=== PATIENT | female | born 1990 | race Caucasian/White ===

== ENCOUNTER 2020-08-20 02:50 | Emergency (ER) | payer OTHER ==
--- OUTSIDE RECORDS SUMMARY | 2020-08-20 03:03 | XMS ---
:1990 Author Organization [facility] Support Name Relationship Address Phone UE Unavailable Unavailable Unavailable NIKA WILLINGHAM FRIEND [address] [facility] [place] [address] CYNDEE WANG FATHER [address] [place] [address] NIKA WILLINGHAM Unavailable [address] [place] [place] [address] Re-disclosure Warning The records that you are about to access may contain information from federally- assisted alcohol or drug abuse programs. If such information is present, then the following federally mandated warning applies: This information has been disclosed to you from records protected by federal confidentiality rules (42 CFR part 2). The federal rules prohibit you from making any further disclosure of this information unless further disclosure is expressly permitted by the written consent of the person to whom it pertains or as otherwise permitted by 42 CFR part 2. A general authorization for the release of medical or other information is NOT sufficient for this purpose. The Federal rules restrict any use of the information to criminally investigate or prosecute any alcohol or drug abuse patient.The records that you are about to access may contain highly sensitive health information, the redisclosure of which is protected by Article 27-F of the [facility] Public Health law. If you continue you may haveaccess to information: Regarding HIV / AIDS; Provided by facilities licensed or operated by the [facility] Office of Mental Health; or Provided by the [facility] Office for People With Developmental Disabilities. If such information is present, then the following [facility] mandated warning applies: This information has been disclosed to you from confidential records which are protected by state law. State law prohibits you from making any further disclosure of this information without the specific written consent of the person to whom it pertains, or as otherwise permitted by law. Any unauthorized further disclosure in violation of state law may result in a fine or custodial sentence or both. A general authorization for the release of medical or other information is NOT sufficient authorization for further disclosure. Encounters Encounter Providers Location Date Indications Data Source(s ) Outpatient [facility] Care 07/20/2019 eCW3 ([facility] A[facility] 12:00:00 AM Health Care) EDT - 07/20/2019 12:00:00 AM EDT Medications Medication Brand Start Product Dose Route Administrative Pharmacy St [facility] Indications Reaction Description Data Name Date Form Instructions Instructions Source(s) 21 DAY NuvaRi 01/16/ active NuvaRing eCW 3 Ethinyl ng 2020 0.12-0.015 ([place] [facility] Estradiol 0.12-0 12:00: MG/24HR Jocelin er 0.898294 .015 00 AM Health MG/HR / MG/24H EDT Care) Etonogestre R l 0.005 MG/HR Vaginal Ring [NuvaRing] NuvaRing 0.12-0.015 MG/24HR 21 DAY NuvaRi 01/16/ active NuvaRing eCW 3 Ethinyl ng 2020 0.12-0.015 ([place] [facility] Estradiol 0.12-0 12:00: MG/24HR Jocelin er 0.036108 .015 00 AM Health MG/HR / MG/24H EDT Care) Etonogestre R l 0.005 MG/HR Vaginal Ring [NuvaRing] NuvaRing 0.12-0.015 MG/24HR Insurance Providers Payer name Policy type Policy ID Covered Covered constitution party's Policy P kiah / Coverage constitution party ID relationship to [place] Inf ormation type keita [facility] MEDICAID [id number] O Social History Code Duration Value Status Description Data Source(s ) Smoking 07/20/2019 Light tobacco completed Light tobacco eCW3 ([facility] 12:00:00 AM EDT smoker smoker [facility]) Smoking 07/20/2019 Light tobacco completed Light tobacco eCW3 ([facility] 12:00:00 AM EDT smoker smoker [facility] Care) Smoking 07/20/2019 Light tobacco completed Light tobacco eCW3 ([facility] 12:00:00 AM EDT smoker smoker [facility]) Vital Signs ID Date Data Source UNK Name Value Range Interpretation Code Description Data Source(s) Diastolic blood 65 mm[Hg] 65 mm[Hg] eCW3 ([facility]) Systolic blood 104 mm[Hg] 104 mm[Hg] eCW3 ([facility]) Body temperature 98.8 [degF] 98.8 [degF] eCW3 ( [facility]) Heart rate 20 /min 20 /min eCW3 ([facility]) Body mass index 30.55 kg/m2 30.55 kg/m2 eCW3 ([facility] (BMI) [Ratio] [facility]) Body weight 178 [lb_av] 178 [lb_av] eCW3 ([facility]) Body height 64 [in_i] 64 [in_i] eCW3 ([facility]) Patient Treatment Plan of Care Planned Activity Planned Date Details Description Data Source (s) 21 DAY Ethinyl Estradiol 01/17/2020 12:00:00 eCW3 ([facility] 0.512408 MG/HR / AM [facility] ) Etonogestrel 0.005 MG/HR Vaginal Ring [NuvaRing] 21 DAY Ethinyl Estradiol 01/17/2020 12:00:00 eCW3 ([facility] [id number] MG/HR / AM [facility] ) Etonogestrel 0.005 MG/HR Vaginal Ring [NuvaRing]
[2020-08-20] MEDS ORDERED: CEPHALEXIN MONOHYDRATE 500 MG CAPSULE (UD) PO ONE (03:06)
[2020-08-20] MEDS ORDERED: SILVER SULFADIAZINE 1% TOP CREAM 50 GM JAR TP ONE ×2 (03:06→03:08)
[2020-08-20] MEDS ORDERED: CEPHALEXIN MONOHYDRATE 500 MG CAPSULE (UD) ONE (03:08)
[2020-08-20] MEDS ORDERED: IBUPROFEN 600 MG TABLET (FP) PO ONE ×2 (03:10)
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
[2020-08-20 03:14] VITALS: BP 110/76; PULSE 83; TEMP 98.2
== END 2020-08-20 03:22 | disposition home or self-care (01) ==
LOC: FER 02:50
DX: T23.002A Burn of unspecified degree of left hand, unspecified site, initial encounter (principal)
CPT/HCPCS: 99283-25

== ENCOUNTER 2020-11-11 21:00 | Emergency (ER) | payer OTHER ==
[2020-11-11] MEDS ORDERED: ACETAMINOPHEN 325 MG TABLET (FP) PO ONE ×2 (21:06→21:18)
[2020-11-11 21:13] VITALS: BP 109/78; PULSE 88; TEMP 98.6; BMI 29.2
[2020-11-11] MEDS ORDERED: ACETAMINOPHEN 325 MG TABLET (FP) ONE (21:14)
[2020-11-11] MEDS ORDERED: IBUPROFEN 400 MG TABLET (FP) PO ONE ×2 (21:18)
== END 2020-11-11 22:20 | disposition home or self-care (01) ==
LOC: FER 21:00
DX: S90.31XA Contusion of right foot, initial encounter (principal); S50.11XA Contusion of right forearm, initial encounter
CPT/HCPCS: 73090-TC-RT-FY; 73630-TC-RT-FY; 99284-25

== ENCOUNTER 2021-05-22 19:09 | Emergency (ER) | payer OTHER ==
[2021-05-22 19:21] VITALS: BMI 31.7
[2021-05-22] MEDS ORDERED: ACETAMINOPHEN 1000 MG/100 ML VIAL (NON FORMULARY) IVPB ONE (20:36)
[2021-05-22] MEDS ORDERED: ONDANSETRON 4 MG/2 ML VIAL IVPUSH ONE (20:36)
[2021-05-22] MEDS ORDERED: SODIUM CHLORIDE 1,000 ML IV STA (20:36)
[2021-05-22] MEDS ORDERED: ONDANSETRON 4 MG/2 ML VIAL ONE (20:38)
[2021-05-22] MEDS ORDERED: ACETAMINOPHEN INJECTION 100 ML IVPB ONE (20:39)
[2021-05-22 21:28] LABS: BASO % 1.1 % (0-2.0); EOS % 0.2 % (0-4.5); HEMATOCRIT 40.7 % (32.4-45.2); HEMOGLOBIN 14.1 GM/dL (10.7-15.3); LYMPH % 32.5 % (8-40); MCH 30.7 pg (25.7-33.7); MCHC 34.7 g/dl (32.0-36.0); MEAN CELL VOLUME 88.4 fl (80-96); MEAN PLT VOLUME 8.9 fl (7.5-11.1); MONO % 17.5 % (3.8-10.2); NEUT % 48.7 % (42.8-82.8); PLATELET COUNT 175 10^3/uL (134-434); RBC 4.61 M/mm3 (3.60-5.2); RDW 12.6 % (11.6-15.6); WHITE BLOOD COUNT 4.4 K/mm3 (4.0-10.0)
[2021-05-22 21:57] LABS: CALCIUM 8.7 mg/dL (8.5-10.1)
[2021-05-22 22:01] LABS: CREATININE 0.7 mg/dL (0.55-1.3)
[2021-05-22 22:54] VITALS: BP 127/83; PULSE 86; TEMP 98.3
== END 2021-05-22 22:58 | disposition home or self-care (01) ==
LOC: JER 19:09
PROC: 3E033NZ Introduction of Analgesics, Hypnotics, Sedatives into Peripheral Vein, Percutaneous Approach (ICD-10-PCS; principal; 2021-05-22)
PROC: 3E033GC Introduction of Other Therapeutic Substance into Peripheral Vein, Percutaneous Approach (ICD-10-PCS; 2021-05-22)
PROC: 3E0337Z Introduction of Electrolytic and Water Balance Substance into Peripheral Vein, Percutaneous Approach (ICD-10-PCS; 2021-05-22)
DX: U07.1 COVID-19 (principal)
CPT/HCPCS: 36415; 80048; 85025; 99284-25; J0131

== ENCOUNTER 2023-05-11 14:29 | Emergency (ER) | payer OTHER ==
[2023-05-11 14:36] VITALS: BMI 37.4
[2023-05-11] MEDS ORDERED: SODIUM CHLORIDE 0.9% 500 ML INFUS.BAG IV ONE (14:56)
[2023-05-11 15:39] LABS: BASO % 0.6 % (0-2.0); EOS % 0.5 % (0-4.5); HEMATOCRIT 32.7 % (32.4-45.2); HEMOGLOBIN 10.8 GM/dL (10.7-15.3); MCH 29.7 pg (25.7-33.7); MCHC 32.9 g/dl (32.0-36.0); MEAN CELL VOLUME 90.1 fl (80-96); MONO % 7.1 % (3.8-10.2); NEUT % 76.8 % (42.8-82.8); PLATELET COUNT 325 10^3/uL (134-434); RBC 3.62 M/mm3 (3.60-5.2); RDW 14.5 % (11.6-15.6); WHITE BLOOD COUNT 9.9 K/mm3 (4.0-10.0)
[2023-05-11 16:00] LABS: CALCIUM 8.8 mg/dL (8.5-10.1)
[2023-05-11 16:01] LABS: ALBUMIN 2.6 g/dl (3.4-5.0); BLOOD UREA NITROGEN 9.5 mg/dL (7-18); MAGNESIUM 1.6 mg/dL (1.8-2.4)
[2023-05-11 16:04] LABS: CREATININE 0.8 mg/dL (0.55-1.3)
[2023-05-11 16:05] LABS: BILIRUBIN,TOTAL 0.4 mg/dL (0.2-1)
[2023-05-11 16:06] LABS: TOT PROT 6.6 g/dl (6.4-8.2)
[2023-05-11] MEDS ORDERED: MAGNESIUM SULF 50% (8.12 MEQ/2 ML-1 GM VIAL) IVPB ONE (16:17)
[2023-05-11] MEDS ORDERED: MAGNESIUM SULF 50% (8.12 MEQ/2 ML-1 GM VIAL) ONE (16:23)
[2023-05-11 17:35] VITALS: BP 128/82; PULSE 92; RESP 18; TEMP 98.2
[2023-05-25] MEDS ORDERED: BUTORPHANOL TARTRATE 1 MG/ML VIAL ONE (13:48)
[2023-05-25] MEDS ORDERED: FENTANYL/BUPIVACAINE/NS/PF - PCEA - 50 ML DISP.SYRIN EP ONE ×2 (14:41→18:27)
== END 2023-05-11 18:15 | disposition home or self-care (01) ==
LOC: JER 14:29
PROC: 3E033GC Introduction of Other Therapeutic Substance into Peripheral Vein, Percutaneous Approach (ICD-10-PCS; principal; 2023-05-11)
DX: O9A.213 Injury, poisoning and certain other consequences of external causes complicating pregnancy, third trimester (principal); O26.893 Other specified pregnancy related conditions, third trimester; O21.9 Vomiting of pregnancy, unspecified; R55 Syncope and collapse; R42 Dizziness and giddiness; R51.9 Headache, unspecified; E86.0 Dehydration; R61 Generalized hyperhidrosis; R23.2 Flushing; W01.198A Fall on same level from slipping, tripping and stumbling with subsequent striking against other object, initial encounter; Y93.89 Activity, other specified; Y92.9 Unspecified place or not applicable; Z3A.38 38 weeks gestation of pregnancy
CPT/HCPCS: 36415; 70450-TC; 80053; 83735; 84484; 85025; 93005; 93010; 99285-25

== ENCOUNTER 2023-05-25 10:26 | Inpatient (IN) | payer OTHER ==
[2023-05-25 13:26] VITALS: BMI 38.4
[2023-05-25 13:28] LABS: BASO % 0.4 % (0-2.0); EOS % 0.1 % (0-4.5); HEMATOCRIT 33.2 % (32.4-45.2); HEMOGLOBIN 11.1 GM/dL (10.7-15.3); LYMPH % 13.6 % (8-40); MCH 29.3 pg (25.7-33.7); MCHC 33.3 g/dl (32.0-36.0); MEAN CELL VOLUME 88.1 fl (80-96); MEAN PLT VOLUME 7.6 fl (7.5-11.1); MONO % 8.6 % (3.8-10.2); NEUT % 77.3 % (42.8-82.8); PLATELET COUNT 297 10^3/uL (134-434); RBC 3.77 M/mm3 (3.60-5.2); RDW 15.5 % (11.6-15.6); WHITE BLOOD COUNT 13.2 K/mm3 (4.0-10.0)
[2023-05-25 13:34] LABS: INR 1.05 (0.83-1.09); PROTHROMBIN TIME (PATIENT) 12.2 SEC (9.7-13.0)
[2023-05-25] MEDS ORDERED: BUTORPHANOL TARTRATE 1 MG/ML VIAL IVPB ONE (13:36)
[2023-05-25 13:37] LABS: ACTIVATED PTT 27.1 SECONDS (25.2-36.5)
[2023-05-25] MEDS ORDERED: ELECTROLYTE-148 SOLN 1,000 ML IV SCH (13:45)
[2023-05-25 13:51] LABS: POTASSIUM 4.1 mmol/L (3.5-5.1)
[2023-05-25 13:52] LABS: BLOOD UREA NITROGEN 7.9 mg/dL (7-18); CALCIUM 9.3 mg/dL (8.5-10.1)
[2023-05-25 13:56] LABS: CREATININE 0.7 mg/dL (0.55-1.3)
[2023-05-25] MEDS ORDERED: BUPIVACAINE HCL/PF 0.25% (2.5MG/ML) 10 ML VIAL ONE (14:57)
[2023-05-25] MEDS ORDERED: NALOXONE HCL 0.4 MG/ML VIAL IVPUSH PRN (15:29)
[2023-05-25] MEDS ORDERED: FENTANYL/BUPIVACAINE/NS/PF - PCEA - 50 ML DISP.SYRIN EP SCH (15:30)
[2023-05-25] MEDS ORDERED: OXYTOCIN 20 UNITS in 0.9% NS 20 UNIT/1,000 ML INFUS.BAG IV ONE (21:06)
[2023-05-25] MEDS ORDERED: LIDOCAINE HCL 1% PRESERVATIVE FREE - 30ML VIAL ONE (21:06)
[2023-05-25] MEDS ORDERED: MISOPROSTOL 200 MCG TABLET ONE (22:00)
[2023-05-25] MEDS ORDERED: BISACODYL 10 MG SUPP.RECT RC PRN (22:09)
[2023-05-25] MEDS ORDERED: BENZOCAINE 28 GM HEMORRHOIDAL OINTMENT TP PRN (22:09)
[2023-05-25] MEDS ORDERED: WITCH HAZEL 50% (TUCKS) 40 PAD/JAR PAD TP PRN (22:09)
[2023-05-25] MEDS ORDERED: BENZOCAINE 20% 57 GM BOTTLE TP PRN (22:09)
[2023-05-25] MEDS ORDERED: ACETAMINOPHEN 325 MG TABLET (FP) PO PRN (22:09)
[2023-05-25] MEDS ORDERED: MISOPROSTOL 100 MCG TABLET PV ONE (22:14)
[2023-05-25] MEDS ORDERED: OXYTOCIN 20 UNITS in 0.9% NS 20 UNIT/1,000 ML INFUS.BAG IV SCH (22:15)
[2023-05-25 22:30] LABS: CORD BASE EXCESS -8.2 mmol/L (0-2); CORD HCO3 20.4 mmHg (20-29); CORD PCO2 53.8 mmHg (30-78); CORD pH 7.197 (7.14-7.44)
[2023-05-25 22:33] LABS: CORD BASE EXCESS -3.5 mmol/L (0-2); CORD HCO3 21.7 mmHg (20-29); CORD PCO2 39.5 mmHg (30-78); CORD pH 7.357 (7.14-7.44)
[2023-05-26] MEDS: IBUPROFEN 600 MG TABLET (FP) PO PRN ×4 (00:35→20:22)
[2023-05-26 06:32] LABS: BASO % 0.2 % (0-2.0); HEMOGLOBIN 9.6 GM/dL (10.7-15.3); LYMPH % 11.5 % (8-40); MCH 29.2 pg (25.7-33.7); MCHC 32.2 g/dl (32.0-36.0); MEAN CELL VOLUME 90.8 fl (80-96); MEAN PLT VOLUME 8.2 fl (7.5-11.1); MONO % 9.3 % (3.8-10.2); PLATELET COUNT 289 10^3/uL (134-434); RDW 15.7 % (11.6-15.6); WHITE BLOOD COUNT 15.8 K/mm3 (4.0-10.0)
[2023-05-26] MEDS ORDERED: SENNOSIDES/DOCUSATE COMBO (SENNA PLUS) TABLET (UD) PO PRN (22:00)
[2023-05-27] MEDS: IBUPROFEN 600 MG TABLET (FP) PO PRN ×2 (04:40→09:52)
[2023-05-27 11:02] VITALS: BP 129/55; PULSE 82; RESP 20; TEMP 98.5
== END 2023-05-27 11:55 | disposition home or self-care (01) | DRG 540 ==
LOC: JDEL 10:26 → JLDR 12:40 → J3W 05-26 00:05
PROVIDERS: ADMIT Student in an Organized Health Care Education/Training Program; ATTEND Student in an Organized Health Care Education/Training Program
PROC: 10D00Z1 Extraction of Products of Conception, Low, Open Approach (ICD-10-PCS; principal; 2023-05-25)
DX: O48.0 Post-term pregnancy (principal); O77.0 Labor and delivery complicated by meconium in amniotic fluid; Z3A.40 40 weeks gestation of pregnancy; Z37.0 Single live birth
CPT/HCPCS: 36415; 36600; 59025; 80048; 82803; 85025; 85610; 85730; 86780; 86850; 86900; 86901; 87081

== ENCOUNTER 2023-06-07 02:01 | Emergency (ER) | payer OTHER ==
[2023-06-07 02:13] VITALS: BP 112/68; PULSE 66; RESP 18; TEMP 97.7; BMI 29.2
[2023-06-07] MEDS ORDERED: SODIUM CHLORIDE 0.9% 500 ML INFUS.BAG IV ONE (02:37)
[2023-06-07] MEDS ORDERED: ONDANSETRON 4 MG/2 ML VIAL IVPUSH ONE (02:37)
[2023-06-07] MEDS ORDERED: FAMOTIDINE 20 MG/50 ML IVPB 20 MG/50 ML MG IVPB ONE (02:37)
[2023-06-07] MEDS ORDERED: ACETAMINOPHEN 1000 MG/100 ML BAG IVPB ONE (02:37)
[2023-06-07] MEDS ORDERED: ONDANSETRON 4 MG/2 ML VIAL ONE (02:46)
[2023-06-07] MEDS ORDERED: ACETAMINOPHEN INJECTION 100 ML IVPB ONE (02:46)
[2023-06-07 03:18] LABS: BASO % 0.2 % (0-2.0); EOS % 0.4 % (0-4.5); HEMATOCRIT 35.4 % (32.4-45.2); HEMOGLOBIN 11.7 GM/dL (10.7-15.3); LYMPH % 14.9 % (8-40); MCH 29.1 pg (25.7-33.7); MCHC 32.9 g/dl (32.0-36.0); MEAN CELL VOLUME 88.4 fl (80-96); MONO % 4.9 % (3.8-10.2); NEUT % 79.6 % (42.8-82.8); PLATELET COUNT 513 10^3/uL (134-434); RDW 15.8 % (11.6-15.6); WHITE BLOOD COUNT 15.9 K/mm3 (4.0-10.0)
[2023-06-07 03:43] LABS: ALBUMIN 3.2 g/dl (3.4-5.0); BLOOD UREA NITROGEN 15.8 mg/dL (7-18); CALCIUM 9.3 mg/dL (8.5-10.1)
[2023-06-07 03:46] LABS: CREATININE 0.8 mg/dL (0.55-1.3)
[2023-06-07 03:48] LABS: BILIRUBIN,TOTAL 0.4 mg/dL (0.2-1); TOT PROT 7.1 g/dl (6.4-8.2)
[2023-06-07 05:47] LABS: EPI CELLS 7 /uL (0-25.1); HYALINE CASTS 5 /uL (0-3.1); PH,URINE 5.5 (5.0-8.0); URINE APPEARANCE CLEAR; URINE BACTERIA 215 /uL (0-1359); URINE BILIRUBIN NEGATIVE (NEGATIVE); URINE COLOR DK YELLOW; URINE GLUCOSE (UA) NEGATIVE (NEGATIVE); URINE KETONE TRACE (NEGATIVE); URINE LEUK ESTERASE NEGATIVE (NEGATIVE); URINE NITRITE NEGATIVE (NEGATIVE); URINE PROTEIN 1+ (NEGATIVE); URINE RBC 47 /uL (0-23.9)
[2023-06-07 13:09] LABS: URINE WBC 200 /uL (0-25.8)
== END 2023-06-07 05:30 | disposition home or self-care (01) ==
LOC: JER 02:01
PROC: 3E033GC Introduction of Other Therapeutic Substance into Peripheral Vein, Percutaneous Approach (ICD-10-PCS; principal; 2023-06-07)
PROC: 3E033GC Introduction of Other Therapeutic Substance into Peripheral Vein, Percutaneous Approach (ICD-10-PCS; 2023-06-07)
PROC: 3E033GC Introduction of Other Therapeutic Substance into Peripheral Vein, Percutaneous Approach (ICD-10-PCS; 2023-06-07)
DX: R11.2 Nausea with vomiting, unspecified (principal); K52.9 Noninfective gastroenteritis and colitis, unspecified
CPT/HCPCS: 36415; 70450-TC; 80053; 81003; 83690; 85025; 87086; 99284-25

== ENCOUNTER 2023-06-12 21:36 | Emergency (ER) | payer OTHER ==
[2023-06-12 22:13] VITALS: BP 111/59; PULSE 65; RESP 16; TEMP 98.5; BMI 29.5
[2023-06-12 22:38] LABS: HEMATOCRIT 33.5 % (32.4-45.2); HEMOGLOBIN 11.1 G/dL (10.7-15.3); MCH 30.4 pg (25.7-33.7); MEAN PLT VOLUME 6.9 fl (7.5-11.1); PLATELET COUNT 353.6 10^3/uL (134-434); RBC 3.64 10^6/uL (3.60-5.2); RDW 14.9 % (11.6-15.6); WHITE BLOOD COUNT 10.4 10^3/uL (4.0-10.8)
[2023-06-12 23:00] LABS: ALBUMIN 3.6 g/dl (3.4-5.0); BLOOD UREA NITROGEN 9.6 mg/dl (7-18); CALCIUM 9.2 mg/dl (8.5-10.1); CREATININE 0.7 mg/dl (0.6-1.3); POTASSIUM 3.5 mmol/L (3.5-5.1); SGOT/AST 57.9 U/L (15-37); SGPT/ALT 62.6 U/L (7-52)
[2023-06-12 23:24] LABS: BILIRUBIN,TOTAL 1.3 mg/dL (0.2-1)
== END 2023-06-12 23:50 | disposition home or self-care (01) ==
LOC: FER 21:36
DX: R10.11 Right upper quadrant pain (principal); R11.0 Nausea; K80.20 Calculus of gallbladder without cholecystitis without obstruction
CPT/HCPCS: 36415; 76705-TC; 80053; 83690; 85027; 99284-25